=== PATIENT | female | born 2000 | race Caucasian/White ===

== ENCOUNTER → 2019-01-25 | Outpatient (CLI) | payer OTHER ==
--- NOTE | 2019-01-25 13:34 | KCIC ---
Chest, PA and Lateral: Technique: PA and lateral views of the chest were obtained. History: Asthma. Comparison: None. Findings: Low lung volumes accentuate heart size and pulmonary vascularity. The cardiomediastinal silhouette grossly appears unremarkable. Minimal prominent bilateral interstitial lung markings in the perihilar region. No evidence of pleural effusion or pneumothorax. IMPRESSION: Mild prominent bilateral perihilar interstitial lung markings could be reactive airway disease/asthma. Electronically signed by: Lonnie Pope MD (01/25/2019 1:31 PM) [facility]
== END | disposition home or self-care (01) ==
LOC: KCIC 12:14
PROVIDERS: ATTEND Internal Medicine Pulmonary Disease
DX: J45.909 Unspecified asthma, uncomplicated (principal)
CPT/HCPCS: 71046

== ENCOUNTER → 2019-03-24 | Outpatient (CLI) | payer OTHER ==
--- NOTE | 2019-03-24 16:24 | KCIC ---
PQRS Compliance statement: One or more of the following individualized dose reduction techniques were utilized for this examination: 1. Automated exposure control. 2. Adjustment of the mA and/or kV according to patient size. 3. Use of iterative reconstruction technique. Indication:Cough. Diagnosis of asthma. TECHNIQUE: CT chest without IV contrast with multiplanar reformats. COMPARISON:None FINDINGS: Heart is normal in size. No pericardial or pleural effusion. No enlarged axillary, mediastinal adenopathy. Evaluation of hilar lymphadenopathy is limited due to lack of IV contrast. Soft tissue material in the anterior superior mediastinum most likely residual thymus. Central airways are patent. Lungs are clear of focal consolidation or interstitial opacities. No emphysema. Visualized noncontrast sections through the liver, spleen, gallbladder, pancreas, adrenals and left kidney within normal limits. No suspicious bony lesion. IMPRESSION: No pulmonary abnormality seen. Electronically signed by: Jorge Coates DO (03/24/2019 4:21 PM) [id number]
== END | disposition home or self-care (01) ==
LOC: KCIC CT 14:00
PROVIDERS: ATTEND Internal Medicine Critical Care Medicine
DX: R05 Cough (principal); J45.909 Unspecified asthma, uncomplicated
CPT/HCPCS: 71250